=== PATIENT | male | born 1965 | race African-American/Black ===

== ENCOUNTER 2022-01-27 15:37 | Emergency (ER) | payer MEDICAID, OTHER ==
[~2022-01-27] VITALS: Ht 185.4 cm; Wt 65.0 kg
[2022-01-27 15:52] VITALS: BP 134/96
== END 2022-01-28 05:45 | disposition left against medical advice (07) ==
LOC: ER 16:01
DX: R35.0 Frequency of micturition (principal)
CPT/HCPCS: 99281

== ENCOUNTER 2022-01-28 20:48 | Emergency (ER) | payer MEDICAID, OTHER ==
[~2022-01-28] VITALS: Ht 185.4 cm; Wt 65.0 kg
[2022-01-28 21:04] VITALS: BP 145/103
== END 2022-01-29 00:19 | disposition left against medical advice (07) ==
LOC: ER 20:48
DX: Z53.21 Procedure and treatment not carried out due to patient leaving prior to being seen by health care provider (principal)